=== PATIENT | female | born 1995 | race Caucasian/White ===

== ENCOUNTER 2021-07-15 16:38 | Emergency (ER) | payer MEDICAID ==
[~2021-07-15] VITALS: Ht 152.4 cm; Wt 77.0 kg
[2021-07-15 16:56] VITALS: BP 130/66
[2021-07-15] MEDS ORDERED: PREDNISONE 20MG TABLET PO ONE (17:15)
[2021-07-15] MEDS ORDERED: P20 MT (17:21)
== END 2021-07-15 18:06 | disposition home or self-care (01) ==
LOC: ER 16:38
DX: L23.4 Allergic contact dermatitis due to dyes (principal); T49.4X5A Adverse effect of keratolytics, keratoplastics, and other hair treatment drugs and preparations, initial encounter; X58.XXXA Exposure to other specified factors, initial encounter; Y93.89 Activity, other specified; Y92.89 Other specified places as the place of occurrence of the external cause
CPT/HCPCS: 81025; 99283; J7512

== ENCOUNTER 2022-01-10 19:43 | Observation (INO) | payer MEDICAID ==
[~2022-01-10] VITALS: Ht 154.9 cm; Wt 59.0 kg
[~2022-01-10 19:43] MED LIST: P20 MT
[2022-01-10] MEDS ORDERED: PNV1TABL59 PO (20:03)
[2022-01-10] MEDS ORDERED: DEXT 5%/LACTATED RINGERS 1,000 ML IV SCH (20:30)
[2022-01-10 20:31] LABS: CLARITY URINE CLEAR (CLEAR); COLOR URINE YELLOW (YELLOW); KETONES URINE NEGATIVE (NEGATIVE); LEUKOCYTE ESTERASE URINE 3+ (NEGATIVE); NITRITE URINE NEGATIVE (NEGATIVE); OCCULT BLOOD URINE TRACE (NEGATIVE); PROTEIN URINE NEGATIVE (NEGATIVE); SPECIFIC GRAVITY URINE 1.007 (1.005-1.030); UROBILINOGEN URINE 0.2 E.U./dL (0.2-1.0)
[2022-01-10 20:32] LABS: BASOPHILS % 0.2 % (0.0-2.0); EOSINOPHILS % 1.3 % (0.0-5.0); HEMATOCRIT. 35.5 % (36.0-48.0); HEMOGLOBIN. 12.1 g/dL (12.0-16.0); LYMPHOCYTES % 16.2 % (20.0-50.0); MEAN CORPUSCULAR HEMOGLOBIN 30.2 pg (28.0-32.0); MEAN CORPUSCULAR VOLUME 88.4 fL (81.0-99.0); MEAN PLATELET VOLUME 8.3 fl (7.4-10.4); MONOCYTES % 5.7 % (2.0-8.0); NEUTROPHILS % 76.6 % (40.0-76.0); PLATELET 257 x1000/uL (130-400); RED BLOOD CELL COUNT 4.02 mill/uL (4.2-5.4); RED CELL DISTRIBUTION WIDTH 13.7 % (11.6-14.6)
[2022-01-10 20:37] LABS: CHLORIDE 107 mEq/L (98-107)
[2022-01-10] MEDS ORDERED: CEFAZOLIN 2,000 MG in DEXT 5% WATER 100 ML IV NR (21:30)
== END 2022-01-10 22:00 | disposition home or self-care (01) ==
LOC: 8 EST LDRP 19:43
PROVIDERS: ADMIT Obstetrics & Gynecology; ATTEND Obstetrics & Gynecology
DX: O26.892 Other specified pregnancy related conditions, second trimester (principal); R42 Dizziness and giddiness; Z3A.25 25 weeks gestation of pregnancy
CPT/HCPCS: 36415; 59025; 76805; 80053; 81003; 85025; 96365; G0378; J0690; J7060; 96360; 96361; 99281